=== PATIENT | female | born 1975 | race Caucasian/White ===

== ENCOUNTER 2024-11-03 11:24 | Emergency (ER) | payer OTHER, SELFPAY ==
[2024-11-03 11:39] VITALS: BP 124/86
[2024-11-03 13:58] VITALS: BP 113/68
--- NOTE | 2024-11-03 14:42 | ED.GENMED ---
History of Present Illness
General
Chief Complaint: Visual Problem
Time Seen by Provider: 11/03/24 14:27
History of Present Illness
History of Present Illness:
49-year-old female presents to the emergency department for evaluation of increasing frequency of headaches over the past month associated with occasional visual flashes to the periphery of both eyes. The visual flashes only occur in the setting of
a headache. Headaches are not severe and typically resolve with ibuprofen use. No obvious provoking or palliating factors. No recent medication changes. Denies any fevers or chills. No nausea vomiting diarrhea, night sweats, or weight loss.
She does note that she has frequent hot flashes and is going through menopause currently
Past History
Past History
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
ED Past Surgical History: Other (Partial thyroidectomy)
Social History
Tobacco: Non-smoker
Alcohol: None
Drug: None
Employment: Employed
Review of Systems
Review of Systems
Allergies reviewed?: Yes
All Other Systems: ROS reviewed and negative except as documented in HPI and ROS
Phy Exam
Physical Exam
Physical Exam:
GEN: Well appearing, NAD, WDWN
HEENT: Oral mucosa moist, no scleral icterus, no nasal congestion
Cardiac: Regular rate
Lung: No respiratory distress, no tachypnea
MSK: No gross deformity or injuries
Skin: Good color, no pallor or jaundice, no rashes
Neuro: AO x3; CN II-XII grossly intact. BUE strength 5/5 in all daily, sensation intact and symmetric. BLE strength 5/5 in all daily, sensation intact and symmetric. Visual daily intact x 4 by confrontation and symmetric bilaterally
Psych: Calm, cooperative
Course
Vital Signs
Initial and Last Documented VS:
Initial Vital Signs
Temp Pulse Resp BP Pulse Ox
98.8 F 74 18 124/86 100
11/03/24 11:39 11/03/24 11:39 11/03/24 11:39 11/03/24 11:39 11/03/24 11:39
Last Documented Vital Signs
Temp Pulse Resp BP Pulse Ox
98.2 F 77 18 113/68 99
11/03/24 13:58 11/03/24 13:58 11/03/24 13:58 11/03/24 13:58 11/03/24 13:58
MDM/Problems Addressed
MDM/Problems Addressed:
Patient is neurologically intact here. No clinical signs of stroke or neurologic malignancy. I suspect her symptoms are headache/migraine mediated, recommend magnesium supplementation and consideration of primary care follow-up to discuss
alteration of her Topamax or daily preventative migraine therapy.
*Critical Care Note
Total Time (30-74mins, 75-104mins- exclusive of procedures): Not Applicable
ED Attending Note
-
Portions of this chart may have been created with voice recognition software.� Occasional wrong word or��sound alike� substitutions may have occurred due to the inherent limitations of voice recognition software.
Discharge Plan
Departure
Patient Disposition: Home (Routine Discharge)
Date of Disposition: 11/03/24
Time of Disposition: 14:44
Patient with high blood pressure during this ER visit?: No
Discharge Problem:
Bilateral headaches
Instructions: Headache, Adult (DC)
Prescriptions:
No Action
topiramate 100 MG tablet
400 mg PO BID
vitamin B complex 1 TAB tablet
1 tab PO HS
magnesium [magnesium gluconate] 200 MG tablet
200 mg PO HS
cholecalciferol (vitamin D3) 1,000 UNITS tablet
1,000 units PO HS
acetaminophen 325 MG tablet
650 mg PO Q4HWA 0RF
gabapentin 100 MG capsule
200 mg PO TID 0RF
naproxen sodium [Aleve] 220 MG tablet
220 mg PO BID Qty: 30 0RF
Referrals:
Malou Mendez CRNP [Family Provider] -
Activity Restrictions/Additional Instructions:
Take 200mg magnesium glycinate twice daily for prevention
Discuss medication changes with your primary care provider
Interventions
Interventions:
*Risk Screen - Suicide Last Done: 11/03/24 11:39
*General Assessment Last Done: 11/03/24 11:39
*Neglect/Abuse Screening Last Done: 11/03/24 11:39
*Nursing Disposition Last Done: 11/03/24 14:50
Discharge Date and Time
Discharge Date/Time: 11/03/24 14:50
Print Language: [id number]
== END 2024-11-03 14:50 | disposition home or self-care (01) ==
LOC: EMR 11:24
PROVIDERS: EMERGENCY PHYSICIAN Emergency Medicine; FAMILY PHYSICIAN Nurse Practitioner Adult Health
DX: R51.9 Headache, unspecified (principal); N95.1 Menopausal and female climacteric states; E89.0 Postprocedural hypothyroidism
CPT/HCPCS: 99282